=== PATIENT | male | born 1945 | race Caucasian/White ===

== ENCOUNTER 2023-07-28 14:23 | Emergency (ER) | payer OTHER, SELFPAY ==
[2023-07-28 14:34] VITALS: BP 182/92
--- NOTE | 2023-07-28 16:45 | ED.GENMED ---
History of Present Illness
General
Chief Complaint: Exposure-Chemical
Source: patient
Exam Limitations: none
Time Seen by Provider: 07/28/23 16:08
Nursing documentation reviewed up to this point in time: agreed with
Travel History
Have you had any contact with someone who has COVID-19?: No
Do you have any symptoms of coronavirus? Fever > 100 degrees, chills, cough, shortness of breath, sore throat, loss of taste or smell, muscle aches, or headache?: No
History of Present Illness
History of Present Illness:
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
possible alkali chemical ingestion 5 days ago.
He states he was using gorilla glue, he got on his hands, he used an industrial chemical drum cleaner to clean the glue off his hands, then wash his hands with soap and water. A little while later he put a piece of orange in his mouth, chewed it up and
swallowed it and then put another piece of orange in his mouth and felt burning in the top of his mouth on the tip of his tongue and in the upper right side of his lip. He immediately spit out the orange.
He washed his hands again with soap and water, took Tums as he felt 'a little discomfort' in his stomach.
The next day he called poison control and they told him that the pH of the chemical he used was 10.0, very high and asked him whether he had trouble swallowing or speaking or breathing all of which she denies. He never had burning in his throat.
He was concerned because he had a few loose bowel movements, nonbloody but he did take Dulcolax 'to get any of it out of my system.'
He states that this time the tip of his tongue is completely normal, his right upper lip is much improved but he still has burning pain on the upper right hard palate.
He never had any difficulty breathing, swallowing or speaking.
Past History
Past History
ED Past Medical History: Asthma (Sleep apnea with CPAP), CAD, GERD, HTN, Hypercholesterolemia, SD and Psychiatric (ADHD, depression, panic disorder, PTSD)
ED Past Surgical History: Cardiac (Cardiac stents times 7 in 11/2020), Orthopedic and Other (Parathyroidectomy)
Review of Systems
Review of Systems
Allergies reviewed?: Yes
All Other Systems: ROS reviewed and negative except as documented in HPI and ROS
EENT: Reports mouth pain (Right side roof of mouth pain); Denies sore throat or mouth swelling
Respiratory: Denies cough or trouble breathing
Cardiac: Denies chest pain
ABD/GI: Denies abdominal pain, nausea, vomiting, bloody stools or black stools
Skin: Reports no symptoms
Neurological: Reports no symptoms
Phy Exam
Physical Exam
Physical Exam:
PHYSICAL EXAMINATION:
GENERAL: No acute distress. A&Ox3.
CONSTITUTIONAL: Afebrile.
EYES: PERRL, conjunctivae normal
ENMT: moist mucus membranes, Pharynx nl, several tiny abrasions in the upper right hard palate, no significant swelling. No difficulty swallowing, speaking well
RESPIRATORY: Regular respirations, nonlabored, lungs clear.
CARDIOVASCULAR: Regular rate and rhythm, no murmurs, no rubs.
GI: Soft, nontender
MUSCULOSKELETAL: Moves with ease. Well perfused.
SKIN: Warm, dry, pink
PSYCH: Normal mood and affect. Well kept, interactive and appropriate
NEUROLOGIC: Awake, alert and oriented. No focal neurological deficits
Course
Vital Signs
Initial and Last Documented VS:
Initial Vital Signs
Temp Pulse Resp BP Pulse Ox
98.7 F 70 18 182/92 97
07/28/23 14:34 07/28/23 14:34 07/28/23 14:34 07/28/23 14:34 07/28/23 14:34
Last Documented Vital Signs
Temp Pulse Resp BP Pulse Ox
98.7 F 70 18 168/90 97
07/28/23 14:34 07/28/23 14:34 07/28/23 14:34 07/28/23 16:57 07/28/23 14:34
MDM/Problems Addressed
Differential Diagnosis Includes:
Alkali garner of hard palate, esophageal alkali garner
MDM/Problems Addressed:
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
possible alkali chemical ingestion 5 days ago.
He states he was using gorilla glue, he got on his hands, he used an industrial chemical drum cleaner to clean the glue off his hands, then wash his hands with soap and water. A little while later he put a piece of orange in his mouth, chewed it up and
swallowed it and then put another piece of orange in his mouth and felt burning in the top of his mouth on the tip of his tongue and in the upper right side of his lip. He immediately spit out the orange.
He washed his hands again with soap and water, took Tums as he felt 'a little discomfort' in his stomach.
The next day he called poison control and they told him that the pH of the chemical he used was 10.0, very high and asked him whether he had trouble swallowing or speaking or breathing all of which she denies. He never had burning in his throat.
He was concerned because he had a few loose bowel movements, nonbloody but he did take Dulcolax 'to get any of it out of my system.'
He states that this time the tip of his tongue is completely normal, his right upper lip is much improved but he still has burning pain on the upper right hard palate.
He never had any difficulty breathing, swallowing or speaking.
Patient is NAD
Oral exam reveals multiple tiny abrasions in the right upper hard palate could be consistent with second-degree garner. There is no significant swelling. Patient is speaking and swallowing well. No indication of esophageal or tracheal injury
He has used Orajel with relief. He admits to eating a half a bag of pistachios the other night which aggravated the area.
*Critical Care Note
Total Time (30-74mins, 75-104mins- exclusive of procedures): Not Applicable
ED Attending Note
-
Portions of this chart may have been created with voice recognition software.� Occasional wrong word or��sound alike� substitutions may have occurred due to the inherent limitations of voice recognition software.
Discharge Plan
Departure
Patient Disposition: Home (Routine Discharge)
Date of Disposition: 07/28/23
Time of Disposition: 16:51
Patient with high blood pressure during this ER visit?: Yes
Condition: Good
Discharge Problem:
Burn of hard palate, Alkaline chemical burn
Instructions: Minor Skin Garner ED
Prescriptions:
No Action
temazepam [Restoril] 30 MG capsule
30 mg PO HS PRN (Reason: insomnia)
atorvastatin 40 MG tablet
40 mg PO HS
pantoprazole 20 MG tablet,delayed release (DR/EC)
20 mg PO HS
aspirin [Dez Chewable Aspirin] 81 MG tablet,chewable
81 mg PO HS
finasteride 5 MG tablet
5 mg PO HS
cholecalciferol (vitamin D3) 1,000 UNITS tablet
1,000 units PO HS
coenzyme [id number] [Co Q-10 (with Vit E)] 1 EACH capsule
1 ea PO HS
omega 5-fvl-ssh-fish oil [Fish Oil] 1 EACH capsule
1 ea PO HS
alpha lipoic acid 600 MG tablet
600 mg PO HS
clopidogrel 75 MG tablet
75 mg PO HS
Hold Instructions: Resume on 05/24/23. OK to resume on the evening of 05/24
nitroglycerin 0.4 MG tablet, sublingual
0.4 mg sublingual [id number] PRN (Reason: chest pain) Qty: 1 5RF
goqkjoqcfqr-anwsxulon-yzv C-Mn [Glucosamine Chondroitin MaxStr] 500-400 mg Capsule
3 cap PO DAILY
Rx Instructions:
1500mg-1200mg daily
vitamin K2 (MK-4) 100 mcg Tablet
100 mcg PO DAILY
acetaminophen [acetaminophen] 325 mg tablet
650 mg PO Q4HPRN PRN (Reason: mild pain) Qty: 1 0RF
oxycodone 5 mg tablet
5 mg PO Q4HPRN PRN (Reason: breakthrough/severe pain) Qty: 10 0RF
Referrals:
Kt Colindres, DO [Family Provider] - As needed
Activity Restrictions/Additional Instructions:
As we discussed you have several tiny abrasions of the upper right hard palate, most likely elio alkali garner. They should heal within next 2-3 weeks.
Avoid hard, crunchy or spicy foods for 2 weeks.
Anbesol gel may help
There is nothing worrisome with your airway or esophagus or stomach such as vomiting, blood in your stools that would cause concern. I do not expect any problems with these areas from this incident.
Interventions
Interventions:
*Risk Screen - Suicide Last Done: 07/28/23 17:00
*General Assessment Last Done: 07/28/23 17:00
*Neglect/Abuse Screening Last Done: 07/28/23 17:00
ED- Fall Risk Assessment Last Done: 07/28/23 17:00
*ED COVID-19 Vaccine History Last Done: 07/28/23 17:00
*Nursing Disposition Last Done: 07/28/23 17:00
ED-EENT Assessment Last Done: 07/28/23 16:51
ED- Pulmonary Assessment Last Done: 07/28/23 16:51
ED-Skin Assessment Last Done: 07/28/23 16:51
Discharge Date and Time
Discharge Date/Time: 07/28/23 17:00
[2023-07-28 16:57] VITALS: BP 168/90
== END 2023-07-28 17:00 | disposition home or self-care (01) ==
LOC: EMR 14:23
PROVIDERS: EMERGENCY PHYSICIAN Emergency Medicine; FAMILY PHYSICIAN Internal Medicine
DX: T52.8X1A Toxic effect of other organic solvents, accidental (unintentional), initial encounter (principal); T28.5XXA Corrosion of mouth and pharynx, initial encounter; S00.512A Abrasion of oral cavity, initial encounter; R19.7 Diarrhea, unspecified; R10.9 Unspecified abdominal pain; X58.XXXA Exposure to other specified factors, initial encounter; G47.30 Sleep apnea, unspecified; E78.00 Pure hypercholesterolemia, unspecified; I10 Essential (primary) hypertension; I25.10 Atherosclerotic heart disease of native coronary artery without angina pectoris; F90.9 Attention-deficit hyperactivity disorder, unspecified type; J45.909 Unspecified asthma, uncomplicated; F43.10 Post-traumatic stress disorder, unspecified; F41.0 Panic disorder [episodic paroxysmal anxiety]; K21.9 Gastro-esophageal reflux disease without esophagitis; F32.A Depression, unspecified; I25.2 Old myocardial infarction; Z95.5 Presence of coronary angioplasty implant and graft; Z88.1 Allergy status to other antibiotic agents; Z88.8 Allergy status to other drugs, medicaments and biological substances; Z79.82 Long term (current) use of aspirin
CPT/HCPCS: 99282